=== PATIENT | male | born 1980 | race Caucasian/White ===

== ENCOUNTER 2017-10-12 09:21 | Emergency (ER) | payer BC ==
[2017-10-12] MEDS ORDERED: Oxymetazoline 0.05% Nasal Spray 15 ML Bottle NAS ONE (09:39)
--- NOTE | 2017-10-16 19:15 | EDM.PDOC ---
ED HPI GENERAL MEDICAL PROBLEM - General Chief Complaint: ENT Problem Stated Complaint: COUGHING UP BLOOD AND SYNCOPE Time Seen by Provider: 10/12/17 09:39 Source of Information: Reports: Patient History Limitations: Reports: No Limitations - History of Present Illness INITIAL COMMENTS - FREE TEXT/NARRATIVE: 37 y/o M with chief complaint of epistaxis. Started earlier today. Has been bleeding off and on. Held pressure and it continued to bleed so came to ED. Bleeding is mostly from R nare. No trauma. No recent illness. No nasal congestion. Has hx of frequent epistaxis. Not on blood thinners. No known bleeding disorder. Otherwise feels fine. While trying to control the bleeding at home, stood up and was leaning over the sink when he became very pale and briefly passed out. helped him to the floor. Denies injury during this incident. No chest pain/palpitations/SOB. Feels fine now. Not dizzy. - Related Data Allergies Allergy/AdvReac Type Severity Reaction Status Date / Time No Known Allergies Allergy Verified 10/15/17 01:27 Home Meds: Home Meds Phendimetrazine Tartrate 105 mg PO DAILY 10/15/17 [History] Past Medical History HEENT History: Reports: Other (See Below) Other HEENT History: nasal surgery Social & Family History - Tobacco Use Smoking Status *Q: Never Smoker - Caffeine Use Caffeine Use: Reports: Coffee - Recreational Drug Use Recreational Drug Use: No ED ROS ENT - Review of Systems Review Of Systems: See Below Constitutional: Denies: Fever HEENT: Reports: Nosebleed Respiratory: Denies: Shortness of Breath Cardiovascular: Denies: Chest Pain Endocrine: Reports: No Symptoms GI/Abdominal: Denies: Vomiting Musculoskeletal: Reports: No Symptoms Neurological: Reports: Syncope Hematologic/Lymphatic: Denies: Easy Bleeding ED EXAM, ENT - Physical Exam Exam: See Below Exam Limited By: No Limitations General Appearance: Alert, WD/WN, No Apparent Distress Eye Exam: Bilateral Eye: EOMI, Normal Inspection, PERRL Ears: Normal External Exam Nose: Other (nasal clamp removed. L nasal septum has stigmata of recent bleeding , minimal oozing from anterior plexus area at this time. R nare/septum is normal ). No: Nasal Deformity, Nasal Swelling, Septal Deformity, Septal Hematoma Mouth/Throat: Normal Inspection, Normal Oropharynx Head: Atraumatic, Normocephalic Neck: Normal Inspection, Supple Respiratory/Chest: No Respiratory Distress, Lungs Clear, Normal Breath Sounds Cardiovascular: Normal Peripheral Pulses, Regular Rate, Rhythm, No Edema, No Murmur GI/Abdominal: Soft, Non-Tender, No Distention. No: Rebound Back: Normal Inspection Extremities: Normal Inspection Neurological: Alert, Oriented, Normal Cognition, No Motor/Sensory Deficits Psychiatric: Normal Affect, Normal Mood Skin: Warm, Dry, Intact, Normal Color, No Rash ED ENT PROCEDURES - Epistaxis Procedure Indication: Epistaxis Recent anticoagulants/antiplatlets: No Uncontrolled HTN: No Recent septal/nasal surgery: No Site of bleeding: Left Nare, Anterior Clearing of clots: Patient Blew Nose Topical Meds: Phenylephrine Ice pack to area: No Chemical cautery: Silver Nitrate Topical Complications: No Course - Vital Signs Last Recorded V/S: Last Vital Signs Temp 36.3 C 10/12/17 09:27 Pulse 102 H 10/12/17 09:27 Resp 16 10/12/17 09:27 BP 117/82 10/12/17 09:27 Pulse Ox 98 10/12/17 09:27 - Orders/Labs/Meds Meds: Medications Discontinued Medications Generic Name Dose Route Start Last Admin Trade Name Freq PRN Reason Stop Dose Admin Oxymetazoline HCl 1 ml 10/12/17 09:39 10/12/17 09:45 Afrin Original 0.05% Nasal [place]NN 10/12/17 09:40 1 dose ONETIME ONE Administration - Re-Assessments/Exams Free Text/Narrative Re-Assessment/Exam: 10/16/17 19:14 Area of recent bleeding cauterized with silver nitrate. No further bleeding in the ED. Counselled patient to use vaseline ointment on septum and also to use humidifier in the bedroom. Discussed ED return precautions. Departure - Departure Time of Disposition: 11:00 Disposition: Home, Self-Care 01 Clinical Impression: Anterior epistaxis - Discharge Information Instructions: Nosebleed, Adult, [id number] Referrals: PCP,None [Primary Care Provider] - Forms: ED Department Discharge
== END 2017-10-12 11:35 | disposition home or self-care (01) ==
LOC: JD.ED 09:21
DX: R04.0 Epistaxis (principal); Z79.899 Other long term (current) drug therapy
CPT/HCPCS: 30901; 93005; 99284; A9270; 99282-25

== ENCOUNTER 2017-10-15 01:14 | Emergency (ER) | payer BC ==
--- NOTE | 2017-10-15 02:00 | EDM.PDOC ---
ED HPI GENERAL MEDICAL PROBLEM - General Chief Complaint: ENT Problem Stated Complaint: BLOODY NOSE Time Seen by Provider: 10/15/17 01:23 Source of Information: Reports: Patient History Limitations: Reports: No Limitations - History of Present Illness INITIAL COMMENTS - FREE TEXT/NARRATIVE: 37 y/o M with hx recurrent epistaxis presents with severe epistaxis. Started around 10:30 pm. He was previously here about 3 days ago with left sided epistaxis and was treated with afrin and nasal clamp and bleeding resolved so he was sent home without packing. Today he states he picked at an irritated spot in his left nare and bleeding started briskly again. He used afrin and nasal clamp at home with no improvement. Vomited blood in the parking lot on his way in. Continues to have bleeding from the L nare. No additional complaint. No history of bleeding disorder. - Related Data Allergies Allergy/AdvReac Type Severity Reaction Status Date / Time No Known Allergies Allergy Verified 10/15/17 01:27 Home Meds: Home Meds Phendimetrazine Tartrate 105 mg PO DAILY 10/15/17 [History] Past Medical History HEENT History: Reports: Other (See Below) Other HEENT History: nasal surgery Social & Family History - Family History Family Medical History: Noncontributory - Tobacco Use Smoking Status *Q: Former Smoker Used Tobacco, but Quit: Yes Month/Year Tobacco Last Used: 1 Second Hand Smoke Exposure: Yes - Caffeine Use Caffeine Use: Reports: Coffee, Soda - Recreational Drug Use Recreational Drug Use: No ED ROS ENT - Review of Systems Review Of Systems: See Below Constitutional: Denies: Fever HEENT: Reports: Nosebleed Respiratory: Reports: No Symptoms Cardiovascular: Reports: No Symptoms Endocrine: Reports: No Symptoms GI/Abdominal: Reports: Vomiting Musculoskeletal: Reports: No Symptoms Skin: Reports: No Symptoms Neurological: Reports: No Symptoms ED EXAM, ENT - Physical Exam Exam: See Below Exam Limited By: No Limitations General Appearance: Alert, WD/WN, No Apparent Distress Eye Exam: Bilateral Eye: Normal Inspection Ears: Normal External Exam Nose: Active Bleeding, Other (brisk epistaxis from the L nare. ). No: Nasal Swelling, Foreign Body Mouth/Throat: Other (normal oropharynx. blood is tracking down the posterior oropharynx) Head: Atraumatic, Normocephalic Neck: Normal Inspection Respiratory/Chest: No Respiratory Distress Cardiovascular: Normal Peripheral Pulses Neurological: Alert, Oriented, Normal Cognition, No Motor/Sensory Deficits Psychiatric: Normal Affect, Normal Mood Skin: Warm, Dry, Intact, Normal Color, No Rash ED ENT PROCEDURES - Epistaxis Procedure Indication: Epistaxis Recent anticoagulants/antiplatlets: No Uncontrolled HTN: No Recent septal/nasal surgery: No Site of bleeding: Left Nare Clearing of clots: Patient Blew Nose Topical Meds: Other (Afrin at home [employer]) Ice pack to area: No Chemical cautery: Silver Nitrate Topical Anterior Packing: Inflatable Nasal Tampon Posterior packing: Long Inflatable Nasal Tampon Complications: No Course - Vital Signs Last Recorded V/S: Last Vital Signs Temp 36.7 C 10/15/17 01:21 Pulse 110 H 10/15/17 01:21 Resp 20 10/15/17 01:21 BP 146/93 H 10/15/17 01:21 Pulse Ox 98 10/15/17 01:21 - Orders/Labs/Meds Orders: Active Orders 24 hr Category Date Time Status Tranexamic Acid [Cyklokapron] Med 10/15/17 03:30 Active 500 mg TOP ONETIME Medication Orders Tranexamic Acid (Cyklokapron) 500 mg TOP ONETIME CLARK Meds: Medications Generic Name Dose Route Start Last Admin Trade Name Freq PRN Reason Stop Dose Admin Tranexamic Acid 500 mg 10/15/17 03:30 Cyklokapron TOP ONETIME CLARK Discontinued Medications Generic Name Dose Route Start Last Admin Trade Name Freq PRN Reason Stop Dose Admin Ondansetron HCl 8 mg 10/15/17 02:37 10/15/17 02:47 Zofran Odt PO 10/15/17 02:38 8 mg ONETIME ONE Administration Tranexamic Acid Confirm 10/15/17 01:41 10/15/17 02:47 Cyklokapron Administered 10/15/17 01:42 1,000 mg Dose Administration 1,000 mg .ROUTE .[facility]-MED ONE - Re-Assessments/Exams Free Text/Narrative Re-Assessment/Exam: 10/15/17 02:00 Bleeding controlled with long inflatable nasal tampon soaked in TXA. 10/15/17 03:11 Bleeding continues to be controlled. Patient did have two bouts of bloody emesis , now feels much better. He is well appearing, and has normal vital signs. Encouraged him to return for removal of nasal packing either Monday or on Monday. Departure - Departure Time of Disposition: 03:13 Disposition: Home, Self-Care 01 Clinical Impression: Epistaxis - Discharge Information Instructions: Nosebleed, Adult, [id number] Referrals: PCP,None [Primary Care Provider] - Forms: ED Department Discharge Additional Instructions: 1. Use vaseline to keep nasal mucosa moist once packing has been removed. 2. Return to the ED if you have persistent bleeding, multiple episodes of vomiting without keeping liquids down, passing out episode, or other concerning symptom 3. Return to the ED either Monday or Monday for packing removal - My Orders Last 24 Hours: My Active Orders 10/15/17 03:30 Tranexamic Acid [Cyklokapron] 500 mg TOP ONETIME - Assessment/Plan Last 24 Hours: My Active Orders 10/15/17 03:30 Tranexamic Acid [Cyklokapron] 500 mg TOP ONETIME
[2017-10-15] MEDS ORDERED: Ondansetron 4 MG Tab.DIS PO ONE (02:37)
== END 2017-10-15 03:22 | disposition home or self-care (01) ==
LOC: JD.ED 01:14
DX: R04.0 Epistaxis (principal); Z79.899 Other long term (current) drug therapy; Z87.891 Personal history of nicotine dependence
CPT/HCPCS: 30901; 99283; A9270; 30903; 30905

== ENCOUNTER 2019-08-15 06:03 | Emergency (ER) | payer BC ==
[2019-08-15] MEDS ORDERED: Oxymetazoline 0.05% Nasal Spray 30 ML Bottle NAS ONE (06:18)
[2019-08-15] MEDS ORDERED: Lidocaine 1% with EPINEPHrine 1:100,000 20 ML MDV INJECT ONE (06:19)
--- NOTE | 2019-08-15 06:37 | EDM.PDOC ---
ED HPI GENERAL MEDICAL PROBLEM - General Chief Complaint: ENT Problem Stated Complaint: BLOODY NOSE Time Seen by Provider: 08/15/19 06:17 Source of Information: Reports: Patient, Family History Limitations: Reports: No Limitations - History of Present Illness INITIAL COMMENTS - FREE TEXT/NARRATIVE: The patient presents with epistaxis. He says this started last night at 8pm. He got it stopped for awhile and then it happened again. He had this happen about 2 years ago and no problems since then. Onset: Sudden Duration: Hour(s): Severity: Moderate Improves with: Reports: None Worsens with: Reports: None Associated Symptoms: Reports: No Other Symptoms - Related Data Allergies Allergy/AdvReac Type Severity Reaction Status Date / Time No Known Allergies Allergy Verified 08/15/19 06:14 Home Meds: Home Meds . [No Known Home Meds] 08/15/19 [History] Past Medical History HEENT History: Reports: Other (See Below) Other HEENT History: nasal surgery Social & Family History - Family History Family Medical History: Noncontributory - Tobacco Use Smoking Status *Q: Never Smoker - Caffeine Use Caffeine Use: Reports: Coffee - Recreational Drug Use Recreational Drug Use: No ED ROS ENT - Review of Systems Review Of Systems: See Below Constitutional: Reports: No Symptoms HEENT: Reports: Nosebleed Respiratory: Reports: No Symptoms Cardiovascular: Reports: No Symptoms Endocrine: Reports: No Symptoms GI/Abdominal: Reports: No Symptoms ED EXAM, ENT - Physical Exam Exam: See Below Exam Limited By: No Limitations General Appearance: Alert, No Apparent Distress Ears: Normal External Exam Nose: Active Bleeding Mouth/Throat: Normal Inspection Head: Atraumatic, Normocephalic Neck: Normal Inspection Respiratory/Chest: No Respiratory Distress, Lungs Clear, Normal Breath Sounds Cardiovascular: Regular Rate, Rhythm, No Edema, No Murmur GI/Abdominal: Soft, Non-Tender, No Organomegaly, No Mass Extremities: Normal Inspection ED ENT PROCEDURES - Epistaxis Procedure Indication: Epistaxis Recent anticoagulants/antiplatlets: No Uncontrolled HTN: No Recent septal/nasal surgery: No Site of bleeding: Left Nare Clearing of clots: Patient Blew Nose Topical Meds: Phenylephrine (TXA and lidocaine with ephinephrine) Chemical cautery: Silver Nitrate Topical Complications: No Course - Vital Signs Last Recorded V/S: Last Vital Signs Temp 98.8 F 08/15/19 06:12 Pulse 104 H 08/15/19 06:12 Resp 16 08/15/19 06:12 BP 132/90 08/15/19 06:12 Pulse Ox 97 08/15/19 06:12 - Orders/Labs/Meds Orders: Active Orders 24 hr Category Date Time Status CBC WITH AUTO DIFF [HEME] Stat Lab 08/15/19 06:45 Results Labs: Laboratory Tests 08/15/19 Range/Units 06:45 WBC 16.16 H (4.23-9.07) K/mm3 RBC 4.77 (4.63-6.08) M/mm3 Hgb 14.4 (13.7-17.5) gm/dl Hct 43.1 (40.1-51.0) % MCV 90.4 (79.0-92.2) fl MCH 30.2 (25.7-32.2) pg MCHC 33.4 (32.2-35.5) g/dl RDW Std Deviation 43.4 (35.1-43.9) fL Plt Count 332 (163-337) K/mm3 MPV 9.3 L (9.4-12.3) fl Neut % (Auto) 71.4 H (34.0-67.9) % Lymph % (Auto) 18.3 L (21.8-53.1) % Zavala % (Auto) 9.5 (5.3-12.2) % Eos % (Auto) 0.6 L (0.8-7.0) Baso % (Auto) 0.1 (0.1-1.2) % Neut # (Auto) 11.53 H (1.78-5.38) K/mm3 Lymph # (Auto) 2.96 (1.32-3.57) K/mm3 Zavala # (Auto) 1.54 H (0.30-0.82) K/mm3 Eos # (Auto) 0.09 (0.04-0.54) K/mm3 Baso # (Auto) 0.02 (0.01-0.08) K/mm3 Meds: Medications Discontinued Medications Generic Name Dose Route Start Last Admin Trade Name Freq PRN Reason Stop Dose Admin Lidocaine/Epinephrine 20 ml 08/15/19 06:19 08/15/19 06:38 Xylocaine 1% With Epinephrine 1:100,000 INJECT 08/15/19 06:20 20 ml ONETIME ONE Administration Ondansetron HCl 4 mg 08/15/19 06:49 08/15/19 06:48 Zofran Odt PO 08/15/19 06:50 4 mg ONETIME ONE Administration Ondansetron HCl Confirm 08/15/19 06:48 08/15/19 06:54 Zofran Odt Administered 08/15/19 06:49 Not Given Dose 4 mg .ROUTE .[facility]-MED ONE Oxymetazoline HCl 1 ml 08/15/19 06:18 08/15/19 06:38 Nasal Decongestant [place] BROOK[place]NN 08/15/19 06:19 5 ml ONETIME ONE Administration Tranexamic Acid 1,000 mg 08/15/19 06:18 08/15/19 06:37 Cyklokapron IVPUSH 08/15/19 06:19 1,000 mg ONETIME ONE Administration - Re-Assessments/Exams Free Text/Narrative Re-Assessment/Exam: 08/15/19 07:23 I used lidocaine with epi, TXA and afrin and put that in his left nostril. That was enough to slow the bleeding. I then used silver nitrate to stop the bleeding. I will discharge him home. Departure - Departure Time of Disposition: 07:30 Disposition: Home, Self-Care 01 Condition: Good Clinical Impression: Anterior epistaxis - Discharge Information *PRESCRIPTION DRUG MONITORING PROGRAM REVIEWED*: Not Applicable *COPY OF PRESCRIPTION DRUG MONITORING REPORT IN PATIENT [place]: Not Applicable Referrals: PCP,None [Primary Care Provider] - Forms: ED Department Discharge, ED Return to Work/School Form Additional Instructions: Put antibiotic ointment in each nostril 2 times per day to keep it moist. Please return if you are worse. Sepsis Event Note - Evaluation Sepsis Screening Result: No Definite Risk - Focused Exam Vital Signs: Vital Signs Temp Pulse Resp BP Pulse Ox 08/15/19 06:12 98.8 F 104 H 16 132/90 97 Date Exam was Performed: 08/15/19 Time Exam was Performed: 07:21 - My Orders Last 24 Hours: My Active Orders 08/15/19 06:45 CBC WITH AUTO DIFF [HEME] Stat - Assessment/Plan Last 24 Hours: My Active Orders 08/15/19 06:45 CBC WITH AUTO DIFF [HEME] Stat
[2019-08-15] MEDS ORDERED: Ondansetron 4 MG Tab.DIS ONE (06:48)
[2019-08-15] MEDS ORDERED: Ondansetron 4 MG Tab.DIS PO ONE (06:49)
== END 2019-08-15 07:35 | disposition home or self-care (01) ==
LOC: JD.ED 06:03
DX: R04.0 Epistaxis (principal)
CPT/HCPCS: 30901; 36415; 85025; 99283; A9270; 99282